=== PATIENT | female | born 1990 | race Caucasian/White ===

== ENCOUNTER 2017-10-31 19:31 | Emergency (ER) | payer SELFPAY ==
[2017-10-31] MEDS ORDERED: Ketorolac 60 MG/2 ML SDV IM ONE (20:16)
[2017-10-31] MEDS ORDERED: HYDROmorphone 0.5 MG/0.5 ML Syringe IM ONE (20:16)
[2017-10-31] MEDS ORDERED: Diazepam 2 MG Tab PO ONE (20:17)
--- NOTE | 2017-10-31 20:24 | EDM.PDOC ---
ED HPI GENERAL MEDICAL PROBLEM - General Chief Complaint: Back Pain or Injury Stated Complaint: BACK PAIN Time Seen by Provider: 10/31/17 20:04 Source of Information: Reports: Patient History Limitations: Reports: No Limitations - History of Present Illness INITIAL COMMENTS - FREE TEXT/NARRATIVE: 27 year old female present for evaluation and treatment of low back pain. Patient reports the back pain started this morning and has steadily worsened throughout the day. Reports no new trauma or injury to the back. Reports several years ago she was bent over picking something up when she developed severe pain in her back. She was seen in the ER and treated with naproxen. States the naproxen did not help much but the back pain slowly subsided on its own. She has never had any imaging of her lumbar spine done. She states today she has pain to the bilateral low back. Reports numbness and tingling radiating down her right leg. Denies any fevers, chills, nausea, vomiting, dysuria or hematuria. 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 Reports a fair amount of heavy lifting associated with her job. Onset: Today Lower Back Pain Score (Numeric/FACES): 10 - Related Data Allergies Allergy/AdvReac Type Severity Reaction Status Date / Time No Known Allergies Allergy Verified 04/05/14 14:54 Home Meds: Home Meds Acetaminophen/oxyCODONE [Percocet 325-5 MG] 1 tab PO Q4H PRN #10 tablet [Rx] Control 1 tab PO DAILY 10/31/17 [History] Orphenadrine [Norflex] 100 mg PO BID #20 tab.er 10/31/17 [Rx] Sertraline [Zoloft] 100 mg PO DAILY 10/31/17 [History] Past Medical History - Past Health History Medical/Surgical History: Denies Medical/Surgical History - Past Surgical History HEENT Surgical History: Reports: Oral Surgery Social & Family History - Tobacco Use Smoking Status *Q: Never Smoker - Caffeine Use Caffeine Use: Reports: Coffee, Soda, Tea - Alcohol Use Days Per Week of Alcohol Use: 1 Number of Drinks Per Day: 2 Total Drinks Per Week: 2 - Recreational Drug Use Recreational Drug Use: No ED ROS GENERAL - Review of Systems Review Of Systems: See Below Constitutional: Denies: Fever, Chills GI/Abdominal: Denies: Nausea, Vomiting : Denies: Dysuria, Flank Pain, Hematuria Musculoskeletal: Reports: Back Pain (bilateral low back). Denies: Neck Pain Neurological: Reports: Numbness (right leg), Tingling (right leg) ED EXAM,LOWER BACK PAIN/INJURY - Physical Exam Exam: See Below Exam Limited By: No Limitations General Appearance: Alert, WD/WN, Moderate Distress (pacing around the room) Neck: Normal Inspection, Supple, Non-Tender, Full Range of Motion Respiratory/Chest: No Respiratory Distress, Lungs Clear, Normal Breath Sounds Cardiovascular: Normal Peripheral Pulses, Regular Rate, Rhythm, No Murmur Back Exam: Normal Inspection, Decreased Range of Motion (unable to flex, extend or rotate at the waiste due to pain), Muscle Spasm (lumbar paraspinal muscle around L3 to the sacrum). No: CVA Tenderness (L), CVA Tenderness (R) Extremities: Normal Inspection Neurological: Alert, Normal Mood/Affect, Normal Dorsiflexion, Normal Plantar Flexion, Straight Leg Raise (L) (causes pain to the bilteral low back), Straight Leg Raise (R) (causes pain to the bilateral low back), Difficulty Walking (gait is slow and deliberate) Psychiatric: Normal Affect, Normal Mood Skin Exam: Warm, Dry, Normal Color Course - Vital Signs Last Recorded V/S: Last Vital Signs Temp 36.1 C 10/31/17 19:41 Pulse 92 10/31/17 19:41 Resp 20 10/31/17 19:41 BP 131/97 H 10/31/17 19:41 Pulse Ox 100 10/31/17 19:41 - Orders/Labs/Meds Meds: Medications Discontinued Medications Generic Name Dose Route Start Last Admin Trade Name Rocky PRN Reason Stop Dose Admin Diazepam 2 mg 10/31/17 20:17 10/31/17 20:28 Valium PO 10/31/17 20:18 2 mg ONETIME ONE Administration Hydromorphone HCl 0.5 mg 10/31/17 20:16 10/31/17 20:28 Dilaudid IM 10/31/17 20:17 0.5 mg ONETIME ONE Administration Ketorolac Tromethamine 60 mg 10/31/17 20:16 10/31/17 20:27 Toradol IM 10/31/17 20:17 60 mg ONETIME ONE Administration - Re-Assessments/Exams Free Text/Narrative Re-Assessment/Exam: 10/31/17 21:20 Did discuss obtaining an xray, however, without any new trauma unlikely to see anything concerning on xray. Decided to treat with medical management. Patient feels greatly improved. Still has some low back pain but the muscle spasms are nearly gone. We will discharge her home at this time. Discharge instructions as documented. Departure - Departure Time of Disposition: 21:20 Disposition: Home, Self-Care 01 Condition: Good Clinical Impression: Muscle spasm of back - Discharge Information Prescriptions: Acetaminophen/oxyCODONE [Percocet 325-5 MG] 1 tab PO Q4H PRN #10 tablet PRN Reason: Pain Orphenadrine [Norflex] 100 mg PO BID #20 tab.er Instructions: Muscle Cramps and Spasms, [id number] Referrals: PCP,None [Primary Care Provider] - Griselda Sheridan MD [Physician] - Forms: ED Department Discharge Additional Instructions: you were given medication in the ER that can affect your ability to drive and operate machinery. Do not drive or operate machinery within 12 hours of taking prescription narcotic pain medication. Rest but do not be completely bedridden. Activity is good for muscle spasms but do not push herself if you pain, stop what you're doing. Recommend using heat to the back. He may also try topical products such as icy hot or BenGay. Take ibuprofen 600-800 mg every 6 hours. For pain not relieved by ibuprofen you may take Percocet 1 tab every 4-[address] operate machinery within 12 hours of taking Percocet. Percocet can be habit-forming, I recommended you take as few of t these as needed to control your pain. Take the Norflex 1 tab twice a day. This medication is for muscle relaxation. This medication may make you drowsy. Do not drive until you know how this medication will affect you. Follow-up with your primary care provider as planned. Please return to the ER if your symptoms change or worsen.
== END 2017-10-31 21:35 | disposition home or self-care (01) ==
LOC: JD.ED 19:31
DX: M62.830 Muscle spasm of back (principal); Z79.899 Other long term (current) drug therapy
CPT/HCPCS: 96372; 99283; A9270; J1170; J1885